=== PATIENT | male | born 2000 | race Two or more races ===

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

== ENCOUNTER 2022-04-02 08:34 | Outpatient (CLI) | payer BC ==
[~2022-04-02 08:34] MED LIST changes: +DEXA4TAB67 PO; -aminophylline inj. 10 ML IV ONE; -regadenoson 0.4mg/5ml syringe IV ONE
[2022-04-03 12:21] LABS: MUMPS ANTIBODIES, IGG 33.7 AU/mL (Immune >10.9); RUBELLA ANTIBODIES, IGG 1.73 index (Immune >0.99); RUBEOLA ANTIBODIES, IGG 88.7 AU/mL (Immune >16.4); VARICELLA-ZOSTER VIRUS AB, IGG 1774 index (Immune >165)
== END 2022-04-02 23:59 | disposition home or self-care (01) ==
LOC: LAB 08:34
PROVIDERS: ATTEND Nurse Practitioner Family
DX: Z01.84 Encounter for antibody response examination (principal)
CPT/HCPCS: 36415; 86706; 86735; 86762; 86765

== ENCOUNTER 2023-03-05 09:26 | Outpatient (CLI) | payer BC ==
[2023-03-05 09:59] LABS: BASOPHILS % (AUTO) 0.3 % (0-1); EOSINOPHILS # (AUTO) 0.3 X10'3 (0-0.9); EOSINOPHILS % (AUTO) 6.4 % (0-6); HEMATOCRIT 44.4 % (42.0-52.0); HEMOGLOBIN 15.2 g/dl (14.0-17.9); LYMPHOCYTES # (AUTO) 1.9 X10'3 (1.1-4.8); LYMPHOCYTES % (AUTO) 38.6 % (21-51); MEAN CORPUSCULAR HEMOGLOBIN 30.7 PG (27.0-31.0); MEAN CORPUSCULAR HGB CONC 34.2 g/dL (33.0-36.5); MEAN CORPUSCULAR VOLUME 89.6 FL (78-98); MEAN PLATELET VOLUME 8.6 FL (7.4-10.4); MONOCYTES # (AUTO) 0.4 X10'3 (0-0.9); NEUTROPHILS # (AUTO) 2.3 X10'3 (1.8-7.7); NEUTROPHILS % (AUTO) 45.7 % (42-75); PLATELET COUNT 220 X10'3 (140-440); RED BLOOD COUNT 4.96 X10'6 (4.70-6.10)
[2023-03-05 10:39] LABS: ALANINE AMINOTRANSFERASE 21 U/L (12-78); ALBUMIN 4.4 G/DL (3.4-5.0); ALBUMIN/GLOBULIN RATIO 1.5 (1.1-1.5); ALKALINE PHOSPHATASE 84 IU/L (46-116); ANION GAP 7 (8-16); ASPARTATE AMINO TRANSFERASE 20 U/L (10-37); BILIRUBIN,TOTAL 0.7 MG/DL (0.1-1.0); BLOOD UREA NITROGEN 13 MG/DL (7-18); BUN/CREATININE RATIO 13.1 (10.0-20.0); CALCIUM 8.9 MG/DL (8.5-10.1); CHLORIDE 103 MMOL/L (99-107); CHOL/HDL RATIO 1.9 (0.00-4.99); CHOLESTEROL 139 MG/DL (0-200); CREATININE 0.99 MG/DL (0.60-1.10); GLUCOSE 94 MG/DL (70-104); HDL CHOLESTEROL 73 MG/DL (35-60); LDL CHOLESTEROL 58 MG/DL (50-100); POTASSIUM 4.1 MMOL/L (3.5-5.1); SODIUM 140 MMOL/L (135-145); TOTAL PROTEIN 7.4 G/DL (6.4-8.2); TRIGLYCERIDES 32 MG/DL (20-135); eGFR > 90 ML/MIN
== END 2023-03-05 23:59 | disposition home or self-care (01) ==
LOC: LAB 09:26
PROVIDERS: ATTEND Nurse Practitioner Family
DX: Z00.00 Encounter for general adult medical examination without abnormal findings (principal); R68.89 Other general symptoms and signs; R79.89 Other specified abnormal findings of blood chemistry; E78.00 Pure hypercholesterolemia, unspecified; R94.6 Abnormal results of thyroid function studies; E55.9 Vitamin D deficiency, unspecified
CPT/HCPCS: 36415; 80053; 80061; 84439; 84443; 85025; 86706

== ENCOUNTER 2025-07-11 14:03 | Outpatient (CLI) | payer BC ==
[2025-07-11 14:31] LABS: MEAN PLATELET VOLUME 8.3 FL (7.4-10.4); RED CELL DISTRIBUTION WIDTH 12.9 % (11.5-14.5)
[2025-07-11 14:52] LABS: CREATININE 1.15 MG/DL (0.60-1.10); TOTAL CARBON DIOXIDE 33.4 MMOL/L (24-32); eGFR 79 ML/MIN
[2025-07-13 13:13] LABS: CREATININE, URINE 116.3 mg/dL (Not Estab.); MICROALB/CRT, RATIO <3 mg/g creat (0-29); MICROALBUMIN,U,RANDOM <3.0 ug/mL (Not Estab.)
== END 2025-07-11 23:59 | disposition home or self-care (01) ==
LOC: RAD 14:03
PROVIDERS: ATTEND Nurse Practitioner Family
DX: Z00.01 Encounter for general adult medical examination with abnormal findings (principal); R68.89 Other general symptoms and signs; R79.89 Other specified abnormal findings of blood chemistry; E55.9 Vitamin D deficiency, unspecified; R94.6 Abnormal results of thyroid function studies; R80.9 Proteinuria, unspecified; R73.01 Impaired fasting glucose
CPT/HCPCS: 36415; 80053; 82043; 82570; 83036; 84443; 85025

== ENCOUNTER 2025-08-01 10:55 | Outpatient (CLI) | payer BC ==
[2025-08-01 11:38] LABS: CREATININE 1.08 MG/DL (0.60-1.10); TOTAL CARBON DIOXIDE 30.5 MMOL/L (24-32); eGFR 85 ML/MIN
== END 2025-08-01 23:59 | disposition home or self-care (01) ==
LOC: RAD 10:55
PROVIDERS: ATTEND Nurse Practitioner Family
DX: R94.4 Abnormal results of kidney function studies (principal); E86.0 Dehydration
CPT/HCPCS: 36415; 80053